=== PATIENT | male | born 1980 | race Caucasian/White ===

== ENCOUNTER 2024-05-28 01:55 | Emergency (ER) | payer SELFPAY ==
[2024-05-28 01:58] VITALS: BP 136/83; PULSE 99; TEMP 37.2; O2SAT 96; BMI 29.8
--- NOTE | 2024-05-28 02:16 | ED_ITS ---
HPI - Dental/Oral General Chief complaint: Dental/Oral Stated complaint: dental Time Seen by Provider: 05/28/24 02:13 Source: patient Mode of arrival: walk-in Limitations: no limitations History of Present Illness HPI Narrative: patient presents complaining of dental pain. Started yesterday. No problem swallowing. No fever or nausea Related Data Allergies Allergy/AdvReac Type Severity Reaction Status Date / Time No Known Drug Allergies Allergy Verified 05/28/24 01:58 Review of Systems ROS Status of ROS 10 or more systems reviewed and unremark able except as noted in history and below Exam Constitutional Vital Signs, click to edit/add: Last Vital Signs Temp 99 F 05/28/24 01:58 Pulse 99 H 05/28/24 01:58 Resp 18 05/28/24 01:58 BP 136/83 05/28/24 01:58 Pulse Ox 96 05/28/24 01:58 O2 Del Method Room Air 05/28/24 01:58 Common normals: no apparent distress, average body habitus, oriented x3, no limitations, healthy appearing, alert and well nourished HENMT Other: right lower molar tenderness. limited swelling Eye Common normals: EOMs intact bilaterally and conjunctivae normal Respiratory Common normals: normal respiratory effort, no retractions, no use of accessory muscles and clear to auscultation bilaterally Cardio Common normals: regular rate, regular rhythm, S1 normal heart sound and S2 normal heart sound Extremity Common normals: normal to inspection and full ROM Neuro Common normals: oriented x3, CN's II-XII intact bilaterally, moves all extremities and no focal motor deficits Psych Appearance: grossly normal Course Vital Signs Vital signs: Vital Signs Temperature 99 F 05/28/24 01:58 Pulse Rate 99 H 05/28/24 01:58 Respiratory Rate 18 05/28/24 01:58 Blood Pressure 136/83 05/28/24 01:58 Pulse Oximetry 96 05/28/24 01:58 Oxygen Delivery Method Room Air 05/28/24 01:58 Temperature 99 F 05/28/24 01:58 Pulse Rate 99 H 05/28/24 01:58 Respiratory Rate 18 05/28/24 01:58 Blood Pressure 136/83 05/28/24 01:58 Pulse Oximetry 96 05/28/24 01:58 Oxygen Delivery Method Room Air 05/28/24 01:58 MDM - Dental/Oral MDM Narrative Medical decision making narrative: patient presents with early dental abscess. Pain control adequate with Motrin. Patient requesting antibiotics.given dose of amoxicillin and discharged home to follow up with his dentist Discharge Plan Discharge Chief Complaint: Dental/Oral Clinical Impression: Dental abscess Patient Disposition: Home, Self-Care Print Language: Bangladeshi Instructions: Dental Abscess (ED) Additional Instructions: follow up with your dentist next week Referrals: KINGS WALLACE [Primary Care Provider] - 1 week
[2024-05-28] MEDS: AMOXICILLIN 500 MG CAPSULE 1000 MG PO (02:37)
== END 2024-05-28 02:40 | disposition home or self-care (01) ==
PROVIDERS: Emergency Provider Internal Medicine; PCP Nurse Practitioner Family
DX: K04.7 Periapical abscess without sinus (principal)
CPT/HCPCS: 99283

== ENCOUNTER 2024-10-15 10:16 | Emergency (ER) | payer SELFPAY ==
[2024-10-15 10:19] VITALS: BP 128/85; PULSE 77; TEMP 36.6; O2SAT 100; BMI 29.8
--- OUTSIDE RECORDS SUMMARY | 2024-10-15 10:21 | XMS_ITS | CCD ---
Author Organization [facility] Care Team Providers Care Note Taker Name Role Phone AFUA WALLACE Attending Unavailable AFUA WALLACE Consulting Unavailable AFUA WALLACE Primary Care Unavailable AFUA WALLACE Admitting Unavailable AFUA WALLACE Primary Care Physician Afua Wallace Unavailable Aimee Borrego Unavailable Michelle Rangel Unavailable Medications Current Medications Medication Drug Class(es) Dates Sig (Normalized) Sig (Original) acetaminophen 325 mg / HYDROcodone bitartrate 5 mg oral tablet (1 source) Opioid Agonist Start: 02-11-2022 [place] 325 mg-5 mg oral tablet 1 tab(s), Oral, q6hr, 4 tab(s), Refill(s) 0, one tab q6hrs as needed for pain, [id number], 184, cm, 02/11/22 8:15:00 EDT, Height/Length Dosing, 113.5, kg, 02/11/22 8:15:00 EDT, Weight Dosing Start Date: 02/11/22 Status: Ordered brompheniramine maleate 0.4 mg/ml / dextromethorphan hydrobromide 2 mg/ml / pseudoephedrine hydrochloride 6 mg/ml oral solution (1 source) alpha-Adrenergic Agonist, Uncompetitive I-qnaqht-A-aspartat e Receptor Antagonist, Sigma-1 Agonist Start: 02-24-2022 take 10 mL by mouth every six hours Pseudoeph-Bromp hen-DM 30-2-10 MG/5ML 10 mL Orally every 6 hours for 5 days Feb, Active buPROPion (5 sources) Aminoketone Start: 02-11-2022 buPROPion 300 mg XL /24 hrs Refills(s) 0 Start Date: 02/11/22 Status: Ordered Start: 01-13-2021 take 1 tablet by arely th every twenty-four hours buPROPion HCl ER (XL) 300 MG 1 tablet in the morning Orally Once a day for 30 day(s) January, Active Wellbutrin Activ e cephalexin 500 mg oral capsule (1 source) Cephalosporin Antibacterial Start: 02-11-2022 End: 02-14-2022 take 1 capsule by mouth twice daily Keflex 500 mg Cap 500 mg = 1 cap(s), Oral, BID, start the day before procedure, X 3 day(s), # 6 cap(s), Refills(s) 0, Pharmacy: [facility] #[id number], 184, cm, 02/11/22 8:15:00 EDT, Height/Length Dosing, 113.5, kg, 02/11/22 8:15:00 EDT, Weight Dosing Start Date: 02/11/22 Stop Date: 02/14/22 Status: Ordered cyclobenzaprine hydrochloride 10 mg oral tablet (1 source) Muscle Relaxant Start: 02-24-2022 Cyclobenzaprine HCl 10 MG 1 tablet every 8 hours as needed Orally three times a day for 5 days Feb, Active diazePAM 10 mg oral tablet (1 source) Benzodiazepine Start: 02-11-2022 Valium 10 mg Tab 10 mg = 1 tab(s), Oral, Once, take 1 hour prior to the procedure, # 1 tab(s), Refills(s) 0, Pharmacy: [facility]pharm[facility] #[id number], 184, cm, 02/11/22 8:15:00 EDT, Height/Length Dosing, 113.5, kg, 02/11/22 8:15:00 EDT, Weight Dosing Start Date: 02/11/22 Status: Ordered fluticasone propionate 0.05 mg/actuat metered dose nasal spray (1 source) Corticosteroid Start: 02-24-2022 take 1 spray(s) nasal route once daily Flonase Allergy Relief 50 MCG/ACT 1 spray in each nostril Nasally Once a day for 14 day(s) Feb, Active ibuprofen 800 mg oral tablet (1 source) Nonsteroidal Anti-inflammatory Drug Start: 12-22-2022 take 1 tablet by mouth three times daily at mealtime as needed Ibuprofen 800 MG 1 tablet with food or milk as needed Orally Three times a day for 7 days Dec, Active penicillin v potassium 500 mg oral tablet (1 source) Start: 12-22-2022 take 1 tablet by mouth every twelve hours Penicillin V Potassium 500 MG 1 tablet Orally Twice a day for 10 day(s) Dec, Active varenicline 0.5 mg oral tablet (4 sources) Partial Cholinergic Nicotinic Agonist Start: 02-11-2022 varenicline 0.5 mg oral tablet Refills(s) 0 Start Date: 02/11/22 Status: Ordered Start: 12-29-2021 take 1 tablet by arely th once daily Varenicline Tartrate 0.5 MG 1 tablet after eating with a full glass of water Orally Once a day for 30 day(s) Dec, Active Start: 12-29-2021 take 1 tablet by arely th twice daily Varenicline Tartrate 1 MG 1 tablet after eating with a full glass of water Orally Twice a day for 30 day(s) Dec, Active Chantix Active Problems Active Problems Problem Classification Problem Date Documented Date Episodic/Chronic Contraceptive and procreative management (2 sources) Contraception status; Translations: [Encounter for other general counseling and advice on contraception] Onset: 12-29-2021 Resolved: 12-29-2021 Episodic Mood disorders (5 sources) Recurrent major depressive episodes, moderate ; Translations: [Major depressive disorder, recurrent, moderate] Onset: 12-29-2021 Resolved: 12-29-2021 Chronic Substance-related disorders (2 sources) Nicotine dependence; Translations: [Nicotine dependence, unspecified, uncomplicated] Onset: 02-11-2022 Chronic Unclassified (3 sources) CONTACT W/AND (SUSP) EXPOS COVID-19; Translations: [CONTACT W/AND (SUSP) EXPOS COVID-19] Onset: 07-05-2021 Unclassified (1 source) Patient encounter status 02-11-2022 Past or Other Problems Problem Classification Problem Date Documented Da te Episodic/Chronic Administrative/social admission (1 source) Tobacco abuse counseling Onset: 12-29-2021 Resolved: 12-29-2021 Episodic Immunizations and screening for infectious disease (1 source) Contact with and (suspected) exposure to other viral communicable diseases; Translations: [Contact with and (suspected) exposure to other viral communicable diseases Z20.828] Onset: 07-01-2021 Resolved: 07-01-2021 Episodic Residual codes; unclassified (1 source) Pain, unspecified Onset: 02-24-2022 Resolved: 02-24-2022 Episodic Unclassified (1 source) CONTACT W/AND (SUSP) EXPOS COVID-19; Translations: [CONTACT W/AND (SUSP) EXPOS COVID-19] Onset: 07-03-2021 Viral infection (1 source) COVID-19 Onset: 02-24-2022 Resolved: 02-24-2022 Results Test Name Value Interpretation Reference Range Facil ity Provider Letteron 04-24-2022 Provider Letter April 24, 2022 ATILIO FREGOSO [address] [place] [id number] ATILIO FREGOSO 1980 Dear Atilio , You missed your scheduled vasectomy appointment on: 04/24/2022 and the purpose of this letter is to inform you of our *No Show Policy*. Our appointment slots fill rapidly and when we have a no show appointment that time is lost. We could have used that time slot to care for a patient who needed to see one of our providers. Therefore, we ask that you call 24 hours in advance to cancel your appointment. If you wish to reschedule your procedure please call our office and we will gladly get your procedure rescheduled. Sincerely, [facility] [address] [place] [address] [facility] COVID/FLU RT-PCRon 2 SARS-CoV-2 (COVID-19) RNA WENDY+probe Ql (Unsp spec) Positive [facility] Other COVID/FLU RT-PCR Negative [facility] [employer] Other [facility]son 02-12-2022 Forms [id number] .[id number]:127 [facility] Physician Referralon 022 Physician Referral [id number]:127 Normal [facility] Ambulatory Visit Summaryon 0 02-11-2022 Ambulatory Visit Summary ATILIO FREGOSO :1980 Visit Date:02/11/2022 Ambulatory Visit Instructions Your Diagnosis Vasectomy evaluation Smoker Your Care Team Attending Physician - Micha DELACRUZ, Laura Gaspar This Is Your Medications List acetaminophen-hydroco done ([place] 325 mg-5 mg oral tablet) cephalexin (Keflex 500 mg Cap) diazepam (Valium 10 mg Tab) Contact prescribing physician if questions or concerns buPROPion (buPROPion 300 mg XL /24 hrs) varenicline (varenicline 0.5 mg oral tablet) Discharge Vitals Heart Rate (Peripheral) 84 Respiratory Rate 16 Blood Pressure 121/84 Height 184.0 cm Height 184 cm Weight 113.5 kg Weight 113.5 kg BMI 33.52 What to do next You Need to Schedule the Following Appointments Follow Up with Micha DELACRUZ, Laura Gaspar, URL, URO When: Comments: will schedule vasectomy Where: Medications What How Much When Instructions New acetaminophen-hydroco done ([place] 325 mg-5 mg oral tablet) 1 Tablets By Mouth Every 6 hours one tab q6hrs as needed for pain Pickup at [facility]/pharmacy #[id number] New cephalexin (Keflex 500 mg Cap) 1 Capsules By Mouth 2 times a day Duration: 3 Days start the day before procedure Pickup at [facility]/pharmacy #[id number] New diazepam (Valium 10 mg Tab) 1 Tablets By Mouth Once take 1 hour prior to the procedure Pickup at [facility]/pharmacy #[id number] Unchanged buPROPion (buPROPion 300 mg XL / 24 hrs) Contact prescribing physician if questions or concerns Unchanged varenicline (varenicline 0.5 mg oral tablet) Contact prescribing physician if questions or concerns Pharmacy Information [facility]/pharmacy #[id number]: [address], [place] [id number] [phone] Allergies No Known Medication Allergies Problems Ongoing - Any problem that you are currently receiving treatment for. Smoker Vasectomy evaluation Education Materials Vasectomy Vasectomy is a procedure in which the tube that carries sperm from the testicle to the urethra (vas deferens) is tied. It may also be cut. The procedure blocks sperm from going through the vas deferens and penis during ejaculation. This ensures that sperm does not go into the vagina during sex. Vasectomy does not affect your sexual desire or performance, and does not prevent sexually transmitted diseases. Vasectomy is considered a permanent and very effective form of control (contraception). The decision to have a vasectomy should not be made during a stressful situation, such as after the loss of a or a divorce. You and your partner should make the decision to have a vasectomy when you are sure that you do not want children in the future. Tell a health care provider about: ? Any allergies you have. ? All medicines you are taking, including vitamins, herbs, eye drops, creams, and yaeh-hkh-jphybmu medicines. ? Any problems you or family members have had with anesthetic medicines. ? Any blood disorders you have. ? Any surgeries you have had. ? Any medical conditions you have. What are the risks? Generally, this is a safe procedure. However, problems may occur, including: ? Infection. ? Bleeding and swelling of the scrotum. ? Allergic reactions to medicines. ? Failure of the procedure to prevent . There is a very small chance that the cut ends of the vas deferens may reconnect (recanalization), meaning that you could still make a woman . ? Pain in the scrotum that continues after healing from the procedure. What happens before the procedure? ? Ask your health care provider about: ? Changing or stopping your regular medicines. This is especially important if you are taking diabetes medicines or blood thinners. ? Taking vfns-mqm-cbmafgc medicines, vitamins, herbs, and supplements. ? Taking medicines such as aspirin and ibuprofen. These medicines can thin your blood. Do not take these medicines unless your health care provider tells you to take them. ? You may be asked to shower with a germ-killing soap. ? Plan to have someone take you home from the hospital or clinic. What happens during the procedure? ? To lower your risk of infection: ? Your health care team will wash or sanitize their hands. ? Hair may be removed from the surgical area. ? Your scrotum will be washed with soap. ? You will be given one or more of the following: ? A medicine to help you relax (sedative). You may be instructed to take this a few hours before the procedure. ? A medicine to numb the area (local anesthetic). ? Your health care provider will feel (palpate) for your vas deferens. ? To reach the vas deferens, one of two methods may be used: ? A very small incision may be made in your scrotum. ? A punctured opening may be made in your scrotum, without an incision. ? Your vas deferens will be pulled out of your scrotum, and may be: ? Tied off. ? Cut and possibly burned (cauterized) at the ends to seal them off. (more content not included)... Normal [facility] Consent for Procedure/Surger yon 02-11-2022 Consent for Procedure/Surger y [id number] .[id number]:127 Normal [facility] Urology Office/Clinic Noteon 02-11-2022 Urology Office/Clinic Note Chief Complaint Vasectomy consult HPI Staff Atilio is here today as a new patient referred for a vasectomy consult. Pt could not give a UA sample at the moment. partner is on board, 3 children. No trama to testicles. Dysuria: _Denies Incomplete bladder emptying: _Denies Hematuria: _Denies Frequency: _Denies Urgency: _Denies Nocturia: _Denies Stream: _steady Leaking: _Denies Post void dripping: _Denies Wearing pads/ Depends: _Denies Urge incontinence: _Denies Stress incontinence: _Denies Incontinence without Sensory Awareness: _Denies Abdominal pain: _Denies Flank pain: _Denies Sexual complaints: _ History of Present Illness Tests Reviewed: Reviewed UA, new pt paperwork and referral paperwork I have reviewed and verified the staff HPI to be accurate for this encounter. I have reviewed the previous health record information and history for this patient from PCP There have been no associated fever, chills, flank pain, or blood in the urine. Denies any urinary infections since last encounter. Review of Systems PHQ Score Initial Depression Screen Score: 0 ROS - Provider Constitutional: denies weight loss, denies hot flashes. Eyes: denies eye problems. Gastrointestinal: denies nausea, denies vomiting. Cardiovascular: denies chest pain or angina. Integumentary: no dryness Musculoskeletal: denies musculoskeletal symptoms. ENMT: denies otolaryngeal symptoms. Respiratory: no shortness of breath. Heme/Lymph: denies easy bleeding tendency, denies easy bruising tendency. Psychiatric: no confusion, no anxiety. Genitourinary: see HPI Physical Exam Vitals & Measurements HR: 84(Peripheral) RR: 16 BP: 121/84 HT: 184.0 cm HT: 184 cm WT: 113.5 kg WT: 113.5 kg BMI: 33.52 General Appearance: alert, no distress, well nourished, well developed male. Head: normocephalic . Eyes: normal orbit and globe. ENMT: normal examination of external ears. Chest: symmetric chest rise, respirations non labored. Cardiovascular: regular rate and rhythm. Abdomen: soft, non distended, no tenderness Genitourinary: normal scrotum, normal testes, normal urethra, normal epididymis, normal vas deferens/spermatic cord - palpable BL, thicker cord tissue Flank Pain: none. Bladder: nonpalpable. Penis: normal shaft, normal glans. circumcised Skin: warm, dry, no bruising. Psychiatric: cooperative, affect appropriate for age, normal judgement, euthymic mood. Assessment/Plan 41 yo healthy M presents for desired sterility. Has 3 kids, youngest is 12 yo and special needs. No prior surgeries, not on AC, no DM. 1. Vasectomy evaluation (Z30.09: Encounter for other general counseling and advice on contraception) Will schedule Vasectomy. The procedural risks, benefits, details, and treatment alternatives of sterilization have been discussed with the patient today. He understands this procedure is considered permanent, even though vasectomy reversals can be performed. There is no guarantee of successful reversal resulting in , however. Risks discussed include bleeding, infection, failure with in about 1:2500, post-vasectomy syndrome (chronic pain in the testicle or scrotum), possible association with prostate cancer development in the future, and erection problems, among others. Despite these risks, he wishes to proceed. He also understands that he is not considered sterile until a negative semen sample has been received after about 2-3 months after the vasectomy. Full informed consent has been obtained. Will order Local anesthesia. Pt states he has 3 kids and the last child has special needs. Denies any urinary problems. Pt would prefer to be scheduled on a Wednesday. All questions and concerns were discussed. Pt acknowledge and understands. Pt will call our office with any changes in urinary symptoms Meds sent to pharm on file, risks/benefits discussed Ordered: Urology Procedure Order 2. Smoker (F17.200: Nicotine dependence, unspecified, uncomplicated) Trying to quit, on chantix. Discussed smoking cessation in general but specifically around procedure time to help with healing Orders: acetaminophen-hydroco done, 1 tab(s), Oral, q6hr, 4 tab(s), Refill(s) 0, one tab q6hrs as needed for pain, [facility]/pharmacy #[id number], 184, cm, 02/11/22 8:15:00 EDT, Height/Length Dosing, 113.5, kg, 02/11/22 8:15:00 EDT, Weight Dosing cephalexin, 500 mg = 1 cap(s), Oral, BID, start the day before procedure, X 3 day(s), # 6 cap(s), Refills(s) 0, Pharmacy: [facility]/pharmacy #[id number], 184, cm, 02/11/22 8:15:00 EDT, Height/Length Dosing, 113.5, kg, 02/11/22 8:15:00 EDT, Weight Dosing diazepam, 10 mg = 1 tab(s), Oral, Once, take 1 hour prior to the procedure, # 1 tab(s), Refills(s) 0, [id number], 184, cm, 02/11/22 8:15:00 EDT, Height/Length Dosing, 113.5, kg, 02/11/22 8:15:00 EDT, Weight Dosing Follow-up With When Contact Information Laura Muse MD, URL, URO Additional Instructions: will schedule vasectomy Patie (more content not included)... Normal [facility] Comment on above: Result Comment: Electronically Signed By : Laura Muse MD\.br\Date and Time Signed: 02/11/22 08:37 EDT\.br\Electronically Co-Signed By: Ariela Lentz MA\.br\Date and Time Co-Signed: 02/11/22 08:29 EDT Covid-19 PCR (CVDTB)on 06-07 SARS-CoV-2 (COVID-19) RNA WENDY+probe Ql (Unsp spec) Not detected Normal NOT DETECTED [facility] Comment on above: Result Comment: This test is not yet serena roved or cleared by the [place] FDA. When there are no FDA-approved or cleared tests available, and other criteria are met, FDA can make tests available under an emergency access mechanism called an Emergency Use Authorization (EUA). The EUA for this test is supported by the [place] of Health and Human Service's (HHS's) declaration that circumstances exist to justify the emergency use of in vitro diagnostics for the detection and/or diagnosis of the virus that causes COVID-19. This EUA will remain in effect (meaning this test can be used) for the duration of the COVID-19 declaration justifying emergency of IVDs, unless it is terminated or revoked by FDA (after which the test may no longer be used). When diagnostic testing is negative, the possibility of a false negative should be considered in the context of a patient's recent exposures and the presence of clinical signs and symptoms consistent with SARS-CoV-2. Performed By: #### C [facility] #### [facility] [address] [place] [address] Dr. Keyon Gonzalez COVID Quick Testingon 2020 Result Negative [facility] Other Vital Signs Date Time Vital Sign Value Performing Clinician Facility 02-24-2022 14:30-0400 Body height 176.53 cm Aimee Borrego Other [facility] Other 02-24-2022 14:30-0400 Body mass index (BMI) [Ratio] 32.02 kg/m2 Aimee Borrego Other [facility] Other 02-24-2022 14:30-0400 Body temperature 100 [degF] Aimee Borrego Other [facility] Other 02-24-2022 14:30-0400 Body weight 99.79 kg Aimee Borrego Other [facility] Other 02-24-2022 14:30-0400 SaO2% (BldA) [Mass fraction] 96 % Aimee Borrego Other [facility] Other 02-11-2022 08:14-0400 Diastolic blood pressure 84 mm[Hg] Laura Lue [facility] 02-11-2022 08:14-0400 Heart rate 84 /min Laura Lue [facility] 02-11-2022 08:14-0400 Respiratory rate 16 /min [facility] 02-11-2022 08:14-0400 Systolic blood pressure 121 mm[Hg] [email or web address] 12-29-2021 17:30-0400 Body height 176.53 cm Afua Wallace Other [facility] Other 12-29-2021 17:30-0400 Body mass index (BMI) [Ratio] 36.39 kg/m2 Afua Wallace Other [facility] Other 12-29-2021 17:30-0400 Body temperature 98.1 [degF] Afua Wallace Other [facility] Other 12-29-2021 17:30-0400 Body weight 113.4 kg Afua Wallace Other [facility] Other 12-29-2021 17:30-0400 Diastolic blood pressure 80 mm[Hg] Afua Wallace Other [facility] Other 12-29-2021 17:30-0400 Respiratory rate 18 /min Afua Wallace Other [facility] Other 12-29-2021 17:30-0400 SaO2% (BldA) [Mass fraction] 99 % Afua Wallace Other [facility] Other 12-29-2021 17:30-0400 Systolic blood pressure 120 mm[Hg] Afua Wallace Other [facility] Other 07-01-2021 12:10-0400 Body height 176.53 cm Afua Wallace Other [facility] Other 07-01-2021 12:10-0400 Body mass index (BMI) [Ratio] 36.39 kg/m2 Afua Wallace Other [facility] Other 07-01-2021 12:10-0400 Body temperature 98.2 [degF] Afua Wallace Other [facility] Other 07-01-2021 12:10-0400 Body weight 113.4 kg Afua Wallace Other [facility] Other 07-01-2021 12:10-0400 Respiratory rate 18 /min Afua Wallace Other [facility] Other 07-01-2021 12:10-0400 SaO2% (BldA) [Mass fraction] 97 % Afua Wallace Other [facility] Other Encounters Encounter Date Encounter Type Care Provider Facility Start: 04-09-2023 End: 04-09-2023 ambulatory Michelle Rangel Other [facility] Other Start: 04-09-2023 Telephone encounter Michelle Rangel [facility] Start: 02-24-2022 End: 02-24-2022 ambulatory Aimee Borrego Other [facility] Other Start: 02-24-2022 Office outpatient visit 25 minutes Aimee Elmo [facility] Start: 02-11-2022 End: 02-11-2022 Patient encounter procedure Laura Muse [facility] [employer] Start: 12-29-2021 End: 12-29-2021 ambulatory Afua Wallace Other [facility] Other Start: 12-29-2021 Office outpatient visit 25 minutes Afuairma Wallace [facility] Start: 07-03-2021 End: 07-03-2021 ambulatory AFUAIRMA WALLACE Facility: Start: 07-01-2021 Office outpatient visit 15 minutes Afua Wallace [facility] Immunizations Immunization Date Immunization Notes Care Provider Fa sury 11-10-2021 SARS-CoV-2 mRNA (tozinameran 5y-11y) vaccine Laura Muse [facility] 10-20-2021 SARS-CoV-2 mRNA (tozinameran 5y-11y) vaccine Laura Muse [facility] [employer] Payers Date Payer Category Payer Unknown [id number] 1957 Unknown [id number] Social History Date Type Detail Facility Start: 02-11-2022 Tobacco smoking status Light t obacco smoker (finding) [facility] Other Sex Assigned At Male [facility] Other Evaluation note 02-24-2022 Note Date & Type Note Facility 02-24-2022 Evaluation note Encounter Date Diagnosis Assessment Notes Feb, Body aches (ICD-10 - R52) Feb, COVID-19 (ICD-10 - U07.1) Advised patient that COVID PCR test was positive. Influenza A/B negative. Instructed patient to isolate per CDC guidelines for 5 days from symptom onset, mask for 5 days. May return to work/activities outside home after isolation period as long as symptoms are improving and has been afebrile for 24 hours without use of antipyretic. Advised patient that treatment of COVID is with viral supportive care, rx medications as directed, Tylenol/Motrin as needed for body aches/fever. Increase fluids and rest. May use muscle relaxer as needed for body aches, advised that this medication may cause drowsiness. Encouraged use of cool mist humidifier. Follow-up with PCP to advise of positive result and further management. Immediate eval for SOB, difficulty, chest pain, fevers that do not break with antipyretic or any other concerning symptoms as reviewed on patient education handout. Patient verbalizes understanding and is agreeable to treatment plan. Patient left in stable condition [facility] Other Clinical Note 02-11-2022 Note Date & Type Note Facility 02-11-2022 Note Urology Vasectomy Vasectomy is a procedure in which the tube that carries sperm from the testicle to the urethra (vas deferens) is tied. It may also be cut. The procedure blocks sperm from going through the vas deferens and penis during ejaculation. This ensures that sperm does not go into the vagina during sex. Vasectomy does not affect your sexual desire or performance, and does not prevent sexually transmitted diseases. Vasectomy is considered a permanent and very effective form of control (contraception). The decision to have a vasectomy should not be made during a stressful situation, such as after the loss of a or a divorce. You and your partner should make the decision to have a vasectomy when you are sure that you do not want children in the future. Tell a health care provider about: ? Any allergies you have. ? All medicines you are taking, including vitamins, herbs, eye drops, creams, and ocpa-ypi-vygkuwv medicines. ? Any problems you or family members have had with anesthetic medicines. ? Any blood disorders you have. ? Any surgeries you have had. ? Any medical conditions you have. What are the risks? Generally, this is a safe procedure. However, problems may occur, including: ? Infection. ? Bleeding and swelling of the scrotum. ? Allergic reactions to medicines. ? Failure of the procedure to prevent . There is a very small chance that the cut ends of the vas deferens may reconnect (recanalization), meaning that you could still make a woman . ? Pain in the scrotum that continues after healing from the procedure. What happens before the procedure? ? Ask your health care provider about: ? Changing or stopping your regular medicines. This is especially important if you are taking diabetes medicines or blood thinners. ? Taking hlhx-wwo-bzisldi medicines, vitamins, herbs, and supplements. ? Taking medicines such as aspirin and ibuprofen. These medicines can thin your blood. Do not take these medicines unless your health care provider tells you to take them. ? You may be asked to shower with a germ-killing soap. ? Plan to have someone take you home from the hospital or clinic. What happens during the procedure? ? To lower your risk of infection: ? Your health care team will wash or sanitize their hands. ? Hair may be removed from the surgical area. ? Your scrotum will be washed with soap. ? You will be given one or more of the following: ? A medicine to help you relax (sedative). You may be instructed to take this a few hours before the procedure. ? A medicine to numb the area (local anesthetic). ? Your health care provider will feel (palpate) for your vas deferens. ? To reach the vas deferens, one of two methods may be used: ? A very small incision may be made in your scrotum. ? A punctured opening may be made in your scrotum, without an incision. ? Your vas deferens will be pulled out of your scrotum, and may be: ? Tied off. ? Cut and possibly burned (cauterized) at the ends to seal them off. ? The vas deferens will be put back into your scrotum. ? The incision or puncture opening will be closed with absorbable stitches (sutures). The sutures will eventually dissolve and will not need to be removed after the procedure. The procedure may vary among health care providers and hospitals. What happens after the procedure? ? You will be monitored to make sure that you do not experience problems. ? You will be asked not to ejaculate for at least 1 week after the procedure, or as long as directed. ? You will need to use a different form of contraception for 2?4 months after the procedure, until you have test results confirming that there are no sperm in your semen. ? You may be given scrotal support to wear, such as a jock strap or underwear with a supportive pouch. ? Do not drive for 24 hours if you were given a sedative to help you relax. Summary ? Vasectomy is considered a permanent and very effective form of control (contraception). The procedure prevents sperm from being released during ejaculation. ? Your scrotum will be numbed with medicine (local anesthetic) for the procedure. ? After the procedure, you will be asked not to ejaculate for at least 1 week, or for as long as directed. You will also need to use a different form of contraception until your health care provider examines you and finds that there are no sperm in your semen. This information is not intended to replace advice given to you by your health care provider. Make sure you discuss any questions you have with your health care provider. Document Released: 11/13/2003 Document Revised: 02/24/2019 Document Reviewed: 11/19/2017 Elsevier Patient Education ? 2019 [employer]. [facility] Hospital Discharge instructions 02-11-2022 Note Date & Type Note Facility 02-11-2022 Hospital Discharg e instructions Patient Education 02/11/2022 08:23:42 Vasectomy Vasectomy Vasectomy is a procedure in which the tube that carries sperm from the testicle to the urethra (vas deferens) is tied. It may also be cut. The procedure blocks sperm from going through the vas deferens and penis during ejaculation. This ensures that sperm does not go into the vagina during sex. Vasectomy does not affect your sexual desire or performance, and does not prevent sexually transmitted diseases. Vasectomy is considered a permanent and very effective form of control (contraception). The decision to have a vasectomy should not be made during a stressful situation, such as after the loss of a or a divorce. You and your partner should make the decision to have a vasectomy when you are sure that you do not want children in the future. Tell a health care provider about: Any allergies you have. All medicines you are taking, including vitamins, herbs, eye drops, creams, and nglz-fki-dflgnux medicines. Any problems you or family members have had with anesthetic medicines. Any blood disorders you have. Any surgeries you have had. Any medical conditions you have. What are the risks? Generally, this is a safe procedure. However, problems may occur, including: Infection. Bleeding and swelling of the scrotum. Allergic reactions to medicines. Failure of the procedure to prevent . There is a very small chance that the cut ends of the vas deferens may reconnect (recanalization), meaning that you could still make a woman . Pain in the scrotum that continues after healing from the procedure. What happens before the procedure? Ask your health care provider about: ?Changing or stopping your regular medicines. This is especially important if you are taking diabetes medicines or blood thinners. ?Taking mkpy-xrm-jurxpqo medicines, vitamins, herbs, and supplements. ?Taking medicines such as aspirin and ibuprofen. These medicines can thin your blood. Do not take these medicines unless your health care provider tells you to take them. You may be asked to shower with a germ-killing soap. Plan to have someone take you home from the hospital or clinic. What happens during the procedure? To lower your risk of infection: ?Your health care team will wash or sanitize their hands. ?Hair may be removed from the surgical area. ?Your scrotum will be washed with soap. You will be given one or more of the following: ?A medicine to help you relax (sedative). You may be instructed to take this a few hours before the procedure. ?A medicine to numb the area (local anesthetic). Your health care provider will feel (palpate) for your vas deferens. To reach the vas deferens, one of two methods may be used: ?A very small incision may be made in your scrotum. ?A punctured opening may be made in your scrotum, without an incision. Your vas deferens will be pulled out of your scrotum, and may be: ?Tied off. ?Cut and possibly burned (cauterized) at the ends to seal them off. The vas deferens will be put back into your scrotum. The incision or puncture opening will be closed with absorbable stitches (sutures). The sutures will eventually dissolve and will not need to be removed after the procedure. The procedure may vary among health care providers and hospitals. What happens after the procedure? You will be monitored to make sure that you do not experience problems. You will be asked not to ejaculate for at least 1 week after the procedure, or as long as directed. You will need to use a different form of contraception for 2 4 months after the procedure, until you have test results confirming that there are no sperm in your semen. You may be given scrotal support to wear, such as a jock strap or underwear with a supportive pouch. Do not drive for 24 hours if you were given a sedative to help you relax. Summary Vasectomy is considered a permanent and very effective form of control (contraception). The procedure prevents sperm from being released during ejaculation. Your scrotum will be numbed with medicine (local anesthetic) for the procedure. After the procedure, you will be asked not to ejaculate for at least 1 week, or for as long as directed. You will also need to use a different form of contraception until your health care provider examines you and finds that there are no sperm in your semen. This information is not intended to replace advice given to you by your health care provider. Make sure you discuss any questions you have with your health care provider. Document Released: 11/13/2003 Document Revised: 02/24/2019 Document Reviewed: 11/19/2017 [employer] Patient Education 2020 [employer] Follow Up Care 01/08/2022 08:32:06 With:Micha DELACRUZ, JAYLEN Cool, URO Address: When: Unknown Comments:will schedule vasectomy [facility] Evaluation note 12-29-2021 Note Date & Type Note Facility 12-29-2021 Evaluation note Encounter Date Diagnosis Assessment Notes Dec, Moderate episode of recurrent major depressive disorder (ICD-10 - F33.1) Patient is stable on medication so we will refill it for the next year Dec, control counseling (ICD-10 - Z30.09) Dec, Encounter for smoking cessation counseling (ICD-10 - Z71.6) Discussed smoking cessation and patient would like to try Chantix. Sent over the starting pack [facility] Other Evaluation note 07-01-2021 Note Date & Type Note Facility 07-01-2021 Evaluation note Encounter Date Diagnosis Assessment Notes Jun, Contact with and (suspected) exposure to other viral communicable diseases (ICD-10 - Z20.828) Even though COVID RAPID test is NEGATIVE, I am highly suspicious at this time you may be positive due to the symptoms. Recommend patient follow Quarantine guidelines until you follow up with PCP.. Recommend OTC medication such as Mucinex, Sea salt nasal spray, Cepecol, Tylenol, Zyrtec, as they can help with symptoms Jun, Other Additional time spent conducting pre-visit phone call, screening for symptoms, instructions on social distancing, application and removal of PPE, and cleaning of examination room, equipment and supplies was preformed. Patient education given for testing methodology and results. Patient care instructions given in writting by [facility] document. [facility] Other Evaluation + Plan note Note Date & Type Note Facility Evaluation + Plan note Future Appointments Appointment Date:04/24/2022 07:30:00 AM Scheduled Provider:Lauar Muse MD Location:[facility] Appointment Type:URO Procedure 30 min Appointment Date:05/13/2022 08:00:00 AM Scheduled Provider:Laura Muse MD Location:[facility] Appointment Type:URO Office Visit [facility] Evaluation note Note Date & Type Note Facility Evaluation note No Information [facility] Other Hospital course Narrative Note Date & Type Note Facility Hospital course Narrative No data available for this section [facility] Reason for referral (narrative) Note Date & Type Note Facility Reason for referral (narrative) Diagnosis 1 control sam marinelli (Z30.09) Referral Organization [facility] Family [facility]in e Jeremy Referring Provider First Name Afua Referring Provider Last Name Vale Referring Provider Specialty Nurse Practitioner Referred Organization [id number] Referred Address [address] [place],[address] Referred Provider Specialty Urology Referral Priority Routine General Notes Gwen Rico 022 08:56:11 AM >Received today. Waiting for office notes to be locked before sending referral Gwen Rico 01/01/2022 02:29:48 PM >[facility] office request us to fax the referral to them and they will call and schedule patient. Referral was fax [facility] Other Summary Purpose Family History No Family History Records FoundNo Family History Records Found Advance Directives No Advanced Directives Records FoundNo Advanced Directives Records Found Additional Source Comments (unrecognized sect ion and content) No Status Records FoundNo Status Records Found INFORMATION SOURCE (unrecogn ized section and content) DATE CREATED AUTHOR 07/26/2021 [facility] DATE CREATED AUTHOR AUTHOR'S ORGANIZ ATION 04/28/2022 [facility] REASON FOR VISIT (unrecogniz ed section and content) #12 YENI SILVER, SORE THROAT, COUGH, COVID Provider VisitFOLLOW UP MEDS, Jeremy DepressionBROWN BUICK, SORE THROAT, B/L EAR PAIN, DIZZINESS, BODYACHES X 2 DAYSTKM - PAP FOR RECORDS PERTAINING TO PATIENTS WHO ARE OR HAVE BEEN ENROLLED IN A CHEMICAL DEPENDENCY/SUBSTANCEABUSE PROGRAM, SOME INFORMATION MAY BE OMITTED. This clinical summary was aggregated from multiple sources. Caution should be exercised in using it in the provision of clinical care. This summary normalizes information from multiple sources, and as a consequence, information in this document may materially change the coding, format and clinical context of patient data. In addition, data may be omitted in some cases. CLINICAL DECISIONS SHOULD BE BASED ON THE PRIMARY CLINICAL RECORDS. [employer] provides no warranty or guarantee of the accuracy or completeness of information in this document.
--- NOTE | 2024-10-15 10:31 | ED_ITS ---
HPI - Dental/Oral General Chief complaint: Dental/Oral Stated complaint: MOUTH PAIN Time Seen by Provider: 10/15/24 10:22 Source: patient Mode of arrival: walk-in History of Present Illness HPI Narrative: The patient have a history of multiple dental issues coming to the ER with a lower dental pain that he noticed yesterday, he did not actually have a lot of pain and just more of a swelling that he noticed and the patient denies any oth er concerns Related Data Previous Rx's ?Medication ?Instructions ?Recorded amoxicillin 875 mg-potassium 1 tab PO Q12H #14 tabs 10/15/24 clavulanate 125 mg tablet ibuprofen 600 mg tablet 600 mg PO Q8H PRN pain #20 tabs 10/15/24 Allergies Allergy/AdvReac Type Severity Reaction Status Date / Time No Known Drug Allergies Allergy Verified 05/28/24 01:58 Review of Systems ROS Status of ROS 10 or more systems reviewed and unremark able except as noted in history and below PFSH PFSH Social History Little interest or pleasure in doing things: not at all Feeling down, depressed, or hopeless: not at all Exam Narrative Exam Narrative: Dental exam: The patient have a very poor dental hygiene with multiple decayed tooth the tooth #18 in the lower mandible is totally decayed with the gum that is inflamed Nurses notes and vital signs reviewed and patient is not hypoxic. General: Well-appearing and in no apparent distress. Skin: Warm, dry, no pallor noted. No rash. Head: Normocephalic, atraumatic. And the patient have mild left lower mandibular swelling with a left lower mandibular lymphadenopathy Constitutional Vital Signs, click to edit/add: Last Vital Signs Temp 97.8 F 10/15/24 10:19 Pulse 77 10/15/24 10:19 Resp 18 10/15/24 10:19 BP 128/85 10/15/24 10:19 Pulse Ox 100 10/15/24 10:19 O2 Del Method Room Air 10/15/24 10:19 Course Vital Signs Vital signs: Vital Signs Temperature 97.8 F 10/15/24 10:19 Pulse Rate 77 10/15/24 10:19 Respiratory Rate 18 10/15/24 10:19 Blood Pressure 128/85 10/15/24 10:19 Pulse Oximetry 100 10/15/24 10:19 Oxygen Delivery Method Room Air 10/15/24 10:19 Temperature 97.8 F 10/15/24 10:19 Pulse Rate 77 10/15/24 10:19 Respiratory Rate 18 10/15/24 10:19 Blood Pressure 128/85 10/15/24 10:19 Pulse Oximetry 100 10/15/24 10:19 Oxygen Delivery Method Room Air 10/15/24 10:19 MDM - Dental/Oral MDM Narrative Medical decision making narrative: The patient dental examination shows possibility of dental infection He was started on Augmentin and referred to the dentist with outpatient The patient is to follow up with primary care physician in next 2-3 days or to return to the emergency department should any of the signs or symptoms worsen or new symptoms develop. The patient agrees with the following Diagnosis and Treatment plan and the patient will be discharged home. Discharge Plan Discharge Chief Complaint: Dental/Oral Clinical Impression: Dental abscess Patient Disposition: Home, Self-Care Time of Disposition Decision: 10:31 Condition: Good Mode of Transportation: Private Vehicle Prescriptions / Home Meds: New amoxicillin-pot clavulanate 875-125 mg tablet 1 tab PO Q12H Qty: 14 0RF ibuprofen 600 mg tablet 600 mg PO Q8H PRN (Reason: pain) Qty: 20 0RF Print Language: [place] Instructions: Dental Abscess (ED) Referrals: [facility] WALLACE [Primary Care Provider] - 1 week Discharge Date/Time: 10/15/24 10:47
== END 2024-10-15 10:47 | disposition home or self-care (01) ==
PROVIDERS: Emergency Provider Emergency Medicine; PCP Nurse Practitioner Family
DX: K04.7 Periapical abscess without sinus (principal)
CPT/HCPCS: 99283